=== PATIENT | female | born 1930 | race Caucasian/White ===

== ENCOUNTER → 2016-10-09 | Outpatient (CLI) | payer MEDICARE, BC ==
[~2016-10-09] MED LIST: AMLODIPINE BESY10 MG PO; AMLODIPINE BESYL5 MG PO; BENTYL20 MG DOB; BENTYL20 MG PO; BISOPROLOL HCTZ PO; BISOPROLOL/HCTZ1 TA4 PO; CALTRATE 600+D PO; CARAFATE1 GM PO; CENTRUM SILVER PO; K-DUR10 MEQ PO; KCL PO; LEVOTHYROXINE75 MCG PO; LORTAB 5/500 TA1 TA1 PO; NIACIN500 M2 PO; PRAVASTATIN SOD40 MG PO; PROTONIX PO; TRILIPIX135 MG PO; TRILIPIX45 MG PO; ZOFRAN ODT4 MG DOB; ZOFRAN ODT4 MG PO; ZOFRANODT PO
--- NOTE | ~2016-10-09 | MY29 ---
[facility] A Service of [facility] & [facility] RADIOLOGY TEXT RESULTS PATIENT: JOSE F LONG LOCATION: [facility] : 32 UNIT #: [id number] AGE: [address]: Rosie Mcbride SEX: F ORDER DR: [id number] [facility] [address] [place], [place] [address] [id number] O MR#: [id number] Acc #: [id number] NAME: JOSE F LONG : 1930 SEX: F STUDY DATE/TIME: 10/09/2016 15:18 UNIT: [facility] ROOM: STUDY DESCRIPTION: MY MARCELO SCREENING W/ CAD BILAT Attending Physician: Rosie Mcbride A.P.R.N. Referring Physician: Edwina Ríos M.D. Ordering Physician: Rosie Mcbride A.P.R.N. Primary Care Physician: Rosie Mcbride A.P.R.N. MEDICAL IMAGING REPORT This report is preliminary unless electronic signature is present EXAM Digital screening mammogram,10/09/2016 HISTORY 86-year-old woman no risk elevation. Annual screening. COMPARISON Unknown location/date. FINDINGS Digital imaging of each breast was completed utilizing screening protocol. Review includes FDA-approved CAD device. The breast parenchyma is partially fatty replaced with fibronodular opacities remaining anterior thirds of each breast. Subareolar duct prominence noted bilaterally. Benign calcifications in each breast. In the right breast on the craniocaudal view only there is a small stellate opacity located lateral at the junction of the anterior thirds and middle thirds. This measures only 6 mm and is not identified on the MLO projection. However, in the absence of previous comparisons further right breast imaging is necessary. This would include a true lateral projection, high-resolution spot compression views and targeted right breast ultrasound if indicated. IMPRESSION Incomplete mammographic evaluation. Additional right breast imaging is recommended. See full report with recommendations. Patients over the age of 40 are entered into a reminder system with target due date for the next mammogram. A result letter will also be sent to the patient. BIRADS: 0 Incomplete; need additional imaging evaluation and/or prior STS. [facility] A Service of [facility] & [facility] RADIOLOGY TEXT RESULTS PATIENT: JOSE F LONG LOCATION: [facility] : 32 UNIT #: [id number] AGE: [address]: Rosie Mcbride SEX: F ORDER DR: mammograms for comparison. Dictated by... Joey Ellington M.D. THIS IS AN ELECTRONICALLY VERIFIED REPORT Joey Ellington M.D. at 10/10/2016 8:06 AM MELBA/madelaine TD: 10/09/2016 21:12 JOB #: [id number] MEDICAL IMAGING REPORT Page 1 of 1 COPY
== END | disposition home or self-care (01) ==
LOC: CWCC 14:30
DX: Z12.31 Encounter for screening mammogram for malignant neoplasm of breast (principal); R92.8 Other abnormal and inconclusive findings on diagnostic imaging of breast
CPT/HCPCS: G0202

== ENCOUNTER → 2016-10-17 | Outpatient (CLI) | payer MEDICARE, BC ==
--- NOTE | ~2016-10-17 | US24 ---
[facility] A Service of [facility] & [facility] RADIOLOGY TEXT RESULTS PATIENT: JOSE F LONG LOCATION: [facility] : 32 UNIT #: [id number] AGE: [address]: Edwina Ríos MD SEX: F ORDER DR: [id number] [facility] [address] [place], [place] [address] [id number] O MR#: [id number] Acc #: [id number] NAME: JOSE F LONG : 1930 SEX: F STUDY DATE/TIME: 10/17/2016 11:05 UNIT: [facility] ROOM: STUDY DESCRIPTION: US Breast Unilateral Attending Physician: Edwina Ríos M.D. Referring Physician: Edwina Ríos M.D. Ordering Physician: Edwina Ríos M.D. Primary Care Physician: Rosie Mcbride A.P.R.N. MEDICAL IMAGING REPORT This report is preliminary unless electronic signature is present EXAM Right breast ultrasound. INDICATIONS Asymmetric density on the right breast mammogram. FINDINGS Roberto-scale and colored ultrasound of the lateral right breast was performed. No ultrasound abnormalities are identified. No correlate for the screening mammogram finding. IMPRESSION Prior benign right breast ultrasound. Recommend 6-month follow-up right breast mammogram to confirm a benign etiology. BIRADS: 3 Probably benign finding; short interval followup suggested. Dictated by... Rah Garcia M.D. THIS IS AN ELECTRONICALLY VERIFIED REPORT Rah Garcia M.D. at 10/17/2016 4:47 PM Marshall TD: 10/17/2016 15:13 JOB #: [id number] MEDICAL IMAGING REPORT Page 1 of 1 COPY
--- NOTE | ~2016-10-17 | MY25 ---
[facility] A Service of [facility] & [facility] RADIOLOGY TEXT RESULTS PATIENT: JOSE F LONG LOCATION: [facility] : 32 UNIT #: [id number] AGE: [address]: Edwina Ríos MD SEX: F ORDER DR: [id number] [facility] [address] [place], [place] [address] [id number] O MR#: [id number] Acc #: [id number] NAME: JOSE F LONG : 1930 SEX: F STUDY DATE/TIME: 10/17/2016 10:38 UNIT: [facility] ROOM: STUDY DESCRIPTION: HELEN MARCELO DIAG W/ CAD UNI RT Attending Physician: Edwina Ríos M.D. Referring Physician: Edwina Ríos M.D. Ordering Physician: Edwina Ríos M.D. Primary Care Physician: Rosie Mcbride A.P.R.N. MEDICAL IMAGING REPORT This report is preliminary unless electronic signature is present EXAM Right digital diagnostic mammogram with CAD and right breast ultrasound, 10/17/2016. CLINICAL HISTORY 86-year-old female with an abnormal baseline mammogram. Asymmetric density in the right lateral breast. No personal history of breast cancer. FINDINGS RIGHT MAMMOGRAM: Spot compression CC, rolled medial and rolled lateral CC, and ML views of the right breast were obtained. The background breast parenchyma consists of scattered fibroglandular densities. There are some benign coarse calcifications and benign vascular calcifications in the breast tissue. The asymmetric density described on the screening mammogram resolves with the spot compression and rolled views. No correlate on the ML view. RIGHT BREAST ULTRASOUND: Roberto-scale and color ultrasound of the right lateral breast was performed. No ultrasound abnormalities are identified to correlate with the mammographic finding. The breast parenchyma is within normal limits. No mass or lesion. IMPRESSION Probably benign right breast ultrasound and mammogram. The asymmetric density in the right breast appears to resolve with spot compression imaging. I would recommend a precautionary 6-month followup mammogram to confirm a benign appearance. RECOMMENDATIONS Followup diagnostic right breast mammogram in 6 months. Patients over the age of 40 are entered into a reminder system with target due date for the next mammogram. A result letter will also be sent to the [facility] A Service of [facility] RADIOLOGY TEXT RESULTS PATIENT: JOSE F LONG LOCATION: [facility] : 32 UNIT #: [id number] AGE: [address]: Edwina Ríos MD SEX: F ORDER DR: patient. BIRADS: 3 Probably benign finding; short interval follow-up suggested. Dictated by... Rah Garcia M.D. THIS IS AN ELECTRONICALLY VERIFIED REPORT Rah Garcia M.D. at 10/17/2016 4:47 PM BENJAMIN/ev TD: 10/17/2016 14:52 JOB #: [id number] MEDICAL IMAGING REPORT Page 1 of 1 COPY
== END | disposition home or self-care (01) ==
LOC: CMAM 10:10
DX: R92.2 Inconclusive mammogram (principal)
CPT/HCPCS: 76641; G0206